=== PATIENT | male | born 1980 | race Two or more races ===

== ENCOUNTER 2018-06-15 16:17 | Emergency (ER) | payer MEDICAID, OTHER ==
[~2018-06-15] VITALS: Ht 172.7 cm; Wt 79.4 kg
[2018-06-15 17:09] VITALS: BP 141/101
[2018-06-15] MEDS ORDERED: KETOROLAC TROMETH 60MG/2ML VIAL IM ONE (17:30)
[2018-06-15 17:42] LABS: Basophils # (auto) 0.1 uL; Basophils % (auto) 0.8 % (0.0-2.0); Eosinophils # (auto) 0.1 uL; Eosinophils % (auto) 1.2 % (0.0-7.0); Hematocrit 47.8 % (41.0-53.0); Hemoglobin 16.4 g/dL (13.5-17.5); Lymphocytes # (auto) 2.4 uL; Lymphocytes % (auto) 24.2 % (10.0-50.0); Mean Corpuscular Hemoglobin 30.9 pg (28.0-32.0); Mean Corpuscular Hgb Conc. 34.4 g/dL (32.0-36.0); Mean Corpuscular Volume 89.8 fL (80.0-100.0); Monocytes # (auto) 1.4 uL; Monocytes % (auto) 13.9 % (0.0-12.0); Neutrophils # (auto) 5.9 uL; Neutrophils % (auto) 59.9 % (37.0-80.0); Platelet Count (auto) 209 10^3/uL (140-450); Red Blood Cells 5.32 10^6/uL (4.5-5.90); Red Cell Distribution Width 13.5 % (11.8-14.3); White Blood Cell 9.9 10^3/uL (4.4-10.8)
[2018-06-15 18:02] LABS: Alanine Aminotransferase 30 U/L (16-61); Albumin 4.4 g/dL (3.4-5.0); Anion Gap 9 (5-15); Aspartate Aminotransferase 26 U/L (15-37); BUN/Creatinine Ratio 16.7; Blood Urea Nitrogen 15 mg/dL (7-18); Calcium 8.5 mg/dL (8.5-10.1); Carbon Dioxide 24 mmol/L (21-32); Chloride 106 mmol/L (98-107); GFR African American 121 mL/min; GFR Non-African American 100 mL/min; Glucose 89 mg/dL (74-106); Potassium 4.2 mmol/L (3.5-5.1); Sodium 139 mmol/L (136-145)
[2018-06-15 18:07] LABS: Alkaline Phosphatase 97 U/L (45-117); Bilirubin, Total 0.3 mg/dL (0.2-1.0); Total Protein 8.3 g/dL (6.4-8.2)
== END 2018-06-15 18:40 | disposition home or self-care (01) ==
LOC: ER 16:17
DX: R07.89 Other chest pain (principal)
CPT/HCPCS: 36415; 71046; 80053; 82962; 84484; 85025; 93005; 96372; 99284; J1885